=== PATIENT | female | born 1975 | race Caucasian/White ===

== ENCOUNTER 2018-10-21 10:03 | Day surgery (SDC) | payer OTHER, BC ==
[~2018-10-21 10:03] MED LIST: CEFAZOLIN 2 GM/50 ML (PMX) 50 ML IVPB; SOD CHLORIDE 0.9% 1,000 ML IV
[2018-10-21] MEDS ORDERED: FENTAnyl 50 MCG/ML VIAL (13:44)
[2018-10-21] MEDS ORDERED: MIDAZOLAM 1 MG/ML 2 ML INJ (13:45)
[2018-10-21] MEDS ORDERED: PROPOFOL 20 ML (13:46)
[2018-10-21] MEDS ORDERED: METOCLOPRAMIDE 10 MG INJ (13:46)
[2018-10-21] MEDS ORDERED: LIDOCAINE 2% (SDV) 5 ML INJ (13:46)
[2018-10-21] MEDS ORDERED: ONDANSETRON 4 MG INJ (13:46)
[2018-10-21] MEDS ORDERED: CEFAZOLIN 1 GM INJ (14:09)
[2018-10-21] MEDS ORDERED: DIPHENHYDRAMINE 50 MG INJ IV (15:00)
[2018-10-21] MEDS ORDERED: hydrALAzine 20 MG INJ IV (15:00)
[2018-10-21] MEDS ORDERED: LEVALBUTEROL (NEB) 1.25 MG/0.5 ML AMP HHN (15:00)
[2018-10-21] MEDS ORDERED: LABETALOL HCL 20MG INJ IV (15:00)
[2018-10-21] MEDS ORDERED: IPRATROPIUM (NEB) 0.5 MG/2.5 ML AMP HHN (15:00)
[2018-10-21] MEDS ORDERED: FENTAnyl 50 MCG/ML VIAL IV ×2 (15:00)
[2018-10-21] MEDS ORDERED: ONDANSETRON 4 MG INJ IV (15:00)
[2018-10-21] MEDS ORDERED: MIDAZOLAM 1 MG/ML 2 ML INJ IV (15:00)
[2018-10-21] MEDS ORDERED: HYDROmorphONE 1 MG/5 ML IV SYRINGE IV (15:00)
[2018-10-21] MEDS ORDERED: MEPERIDINE 25 MG INJ IV (15:00)
[2018-10-21] MEDS ORDERED: HYDROCODONE/APAP (7.5/325) TAB PO (16:30)
[2018-10-21] MEDS: HYDROmorphONE 1 MG/5 ML IV SYRINGE IV ×2 (16:52→17:00)
== END 2018-10-21 18:31 | disposition home or self-care (01) ==
LOC: SDS 10:03
DX: T85.44XA Capsular contracture of breast implant, initial encounter (principal); T85.848A Pain due to other internal prosthetic devices, implants and grafts, initial encounter; Y81.3 Surgical instruments, materials and general- and plastic-surgery devices (including sutures) associated with adverse incidents; Y83.8 Other surgical procedures as the cause of abnormal reaction of the patient, or of later complication, without mention of misadventure at the time of the procedure
CPT/HCPCS: 19328; 88300